=== PATIENT | female | born 1955 | race African-American/Black ===

== ENCOUNTER 2017-03-10 17:05 | Inpatient (IN) | payer OTHER ==
[2017-03-10] MEDS ORDERED: NORMAL SALINE 1000 ML 1,000 ML IV ONE (17:28)
[2017-03-10] MEDS ORDERED: CLONIDINE HCL 0.1 MG TABLET PO ONE (17:28)
[2017-03-10] MEDS ORDERED: MORPHINE SULFATE 10 MG/ML INJ IV ONE ×2 (17:29→22:26)
[2017-03-10] MEDS ORDERED: ONDANSETRON HCL INJ/PF 4 MG/2 ML SDV IV ONE (17:29)
--- NOTE | 2017-03-10 17:29 | ER Document Report ---
ED Medical Screen (RME) - General Chief Complaint: Abdominal Pain Stated Complaint: ABDOMINAL PAIN Time Seen by Provider: 03/10/17 17:24 Mode of Arrival: Ambulatory Information source: Patient Notes: 61-year-old female presents with complaints of abdominal pain nausea vomiting. Patient has symptoms started 3 hours prior to arrival, she has had a history of 2 previous hernia repairs, pt vomited her bp meds I have greeted and performed a rapid initial assessment of this patient. A comprehensive ED assessment and evaluation of the patient, analysis of test results and completion of the medical decision making process will be conducted by additional ED providers. PHYSICAL EXAMINATION: GENERAL: Well-appearing, well-nourished and in no acute distress. HEAD: Atraumatic, normocephalic. EYES: Pupils equal round extraocular movements intact, conjunctiva are normal. ENT: Nares patent NECK: Normal range of motion LUNGS: No respiratory distress Musculoskeletal: Normal range of motion NEUROLOGICAL: Normal speech, normal gait. PSYCH: Normal mood, normal affect. SKIN: Warm, Dry, normal turgor, no rashes or lesions noted. TRAVEL OUTSIDE OF THE [place] IN LAST 30 DAYS: No Past Medical History Renal/ Medical History: Denies: Hx Peritoneal Dialysis Physical Exam - Vital signs Vitals: Temp Pulse Resp BP Pulse Ox 97.9 F 65 20 212/105 H 100 03/10/17 17:20 03/10/17 17:20 03/10/17 17:20 03/10/17 17:20 03/10/17 17:20 Course - Vital Signs Vital signs: Temp Pulse Resp BP Pulse Ox 97.9 F 65 20 212/105 H 100 03/10/17 17:20 03/10/17 17:20 03/10/17 17:20 03/10/17 17:20 03/10/17 17:20
--- NOTE | 2017-03-10 18:30 | ER Document Report ---
ED GI/ - General Chief Complaint: Abdominal Pain Stated Complaint: ABDOMINAL PAIN Time Seen by Provider: 03/10/17 17:24 Mode of Arrival: Ambulatory Notes: The patient is a 61-year-old female, past medical history hypertension, 2 prior hernia repairs, presents with epigastric pain, nausea and vomiting. She says the pain feels similar to when her hernia needed repair in the past. Patient vomited her blood pressure meds earlier today. She no longer has any nausea, vomiting, pain after she received morphine and Zofran in triage. Patient had a normal bowel movement this morning and does not have any urinary symptoms. Denies hematemesis, chest pain, shortness of breath, headache, fevers, flank pain or cough. TRAVEL OUTSIDE OF THE [place] IN LAST 30 DAYS: No - Related Data Allergies/Adverse Reactions: amlodipine [From Lotrel] Allergy (Verified 03/10/17 18:51) benazepril [From Lotrel] Allergy (Verified 03/10/17 18:51) Home Medications: Current Home Medications Clonazepam [Klonopin] 1 mg PO BID 03/10/17 [History] Esomeprazole Magnesium 40 mg PO DAILY 03/10/17 [History] Fluticasone Propionate [Flonase Nasal [place] 50 Mcg/[place] 16 gm] 1 spray IH DAILY 03/10/17 [History] Hydralazine HCl 1 tab PO QID 03/10/17 [History] Hydroxyzine HCl 25 mg PO Q8HP PRN 03/10/17 [History] Meloxicam 15 mg PO DAILY 03/10/17 [History] Metoprolol Succinate [Toprol Xl] 100 mg PO DAILY 03/10/17 [History] Phentermine HCl 37.5 mg PO DAILY 03/10/17 [History] Torsemide [Demadex] 20 mg PO QAM 03/10/17 [History] Valsartan 320 mg PO DAILY 03/10/17 [History] Past Medical History - General Information source: Patient - Social History Smoking Status: Current Every Day Smoker Chew tobacco use (# tins/day): No Frequency of alcohol use: Social Drug Abuse: None Family History: Reviewed & Not Pertinent Patient has suicidal ideation: No Patient has homicidal ideation: No - Past Medical History Cardiac Medical History: Reports: Hx Hypertension Renal/ Medical History: Denies: Hx Peritoneal Dialysis Past Surgical History: Reports: Hx Abdominal Surgery - x2, Hx Hysterectomy Review of Systems - Review of Systems Notes: REVIEW OF SYSTEMS: CONSTITUTIONAL: -fevers, -chills EENT: -eye pain, -difficulty swallowing, -nasal congestion CARDIOVASCULAR:-chest pain, -syncope. RESPIRATORY: -cough, -SOB GASTROINTESTINAL: +abdominal pain, +nausea, +vomiting, -diarrhea GENITOURINARY: -dysuria, -hematuria MUSCULOSKELETAL: -back pain, -neck pain SKIN: -rash or skin lesions. HEMATOLOGIC: -easy bruising or bleeding. LYMPHATIC: -swollen, enlarged glands. NEUROLOGICAL: -altered mental status or loss of consciousness, -headache, - neurologic symptoms PSYCHIATRIC: -anxiety, -depression. ALL OTHER SYSTEMS REVIEWED AND NEGATIVE. Physical Exam - Vital signs Vitals: Temp Pulse Resp BP Pulse Ox 97.9 F 65 20 212/105 H 100 03/10/17 17:20 03/10/17 17:20 03/10/17 17:20 03/10/17 17:20 03/10/17 17:20 - Notes Notes: PHYSICAL EXAMINATION: GENERAL: Mild distress, HEAD: Atraumatic, normocephalic. EYES: Pupils equal round and reactive to light, extraocular movements intact, sclera anicteric, conjunctiva are normal. ENT: nares patent, oropharynx clear without exudates. Moist mucous membranes. NECK: Normal range of motion, supple without lymphadenopathy LUNGS: Breath sounds clear to auscultation bilaterally and equal. No wheezes rales or rhonchi. HEART: Regular rate and rhythm without murmurs ABDOMEN: Soft, moderate epigastric tenderness, normoactive bowel sounds. No guarding, no rebound. No masses appreciated. EXTREMITIES: Normal range of motion, no pitting or edema. No cyanosis. NEUROLOGICAL: Cranial nerves grossly intact. Normal speech, normal gait. Normal sensory and motor exams. PSYCH: Normal mood, normal affect. SKIN: Warm, Dry, normal turgor, no rashes or lesions noted. Course - Re-evaluation Re-evalutation: Pt with evidence of pancreatitis on CAT scan and with elevated lipase. No gallstones. Triglyceride levels are normal. She says that she drinks 2-3 glasses of wine a night, but has been drinking more since she is on vacation visiting her son. Patient provided with her home blood pressure medications with improvement of her blood pressure. Patient requires admission due to nausea, vomiting and pain control. Primary care physician is in [facility]. 03/10/17 22:[address] Cortze and will admit patient as Inpatient to Medical Floor. - Vital Signs Vital signs: Temp Pulse Resp BP Pulse Ox 97.9 F 65 18 142/91 H 96 03/10/17 17:20 03/10/17 17:20 03/10/17 21:01 03/10/17 21:01 03/10/17 21:01 - Laboratory Result Diagrams: 03/10/17 18:09 03/10/17 19:10 Laboratory results interpreted by me: 03/10/17 03/10/17 03/10/17 18:09 18:41 19:10 MCHC 31.9 L RDW 14.7 H Seg Neutrophils % 79.7 H Lymphocytes % 12.9 L Est GFR (Non-Af Amer) 55 L Lipase 3075.6 H Urine Ketones TRACE H Urine Blood SMALL H Urine Nitrite POSITIVE H Ur Leukocyte Esterase SMALL H - Diagnostic Test Radiology reviewed: Image reviewed, Reports reviewed Radiology results interpreted by me: CT A/P: There is mild diffuse enlargement of the pancreas with peripancreatic fluid and fat stranding questionable for underlying pancreatitis. There is a small amount of fluid seen within the pelvis and throughout the abdomen likely related to inflammation related the pancreas. No other acute abnormality identified within the abdomen. Small fat containing umbilical hernia noted RUQ US: Intra- abdominal ascites as seen on the CT. No other significant abnormality identified on the right upper quadrant ultrasound. - EKG Interpretation by Me EKG shows normal: Sinus rhythm, [place], Intervals, QRS Complexes, ST-T Waves Rate: Normal Discharge - Discharge Clinical Impression: Pancreatitis Qualifiers: Chronicity: acute Pancreatitis type: alcohol induced Acute pancreatitis complication: no infection or necrosis Qualified Code(s): K85.20 - Alcohol induced acute pancreatitis without necrosis or infection Condition: Stable Disposition: ADMITTED INPATIENT Admitting Provider: Jacklyn Cortez Unit Admitted: Medical Floor
[2017-03-10 18:36] LABS: ABSOLUTE BASOPHILS # (AUTO) 0.1 10^3/uL (0.0-0.2); ABSOLUTE LYMPHOCYTES (AUTO) 1.1 10^3/uL (0.5-4.7); ABSOLUTE MONOCYTES (AUTO) 0.5 10^3/uL (0.1-1.4); ABSOLUTE NEUT (AUTO) 6.7 10^3/uL (1.7-8.2); BASOPHILS % (AUTO) 0.7 % (0-2); EOSINOPHILS % (AUTO) 0.4 % (0-6); HEMATOCRIT 37.6 % (36.0-47.0); HGB HCT DIFFERENCE -1.6; LYMPHOCYTES % (AUTO) 12.9 % (13-45); MEAN CORPUSCULAR HEMOGLOBIN 30.2 pg (27.0-33.4); MEAN CORPUSCULAR HGB CONC 31.9 g/dL (32.0-36.0); MEAN CORPUSCULAR VOLUME 95 fl (80-97); MONOCYTES % (AUTO) 6.3 % (3-13); RED BLOOD COUNT 3.98 10^6/uL (3.72-5.28); RED CELL DISTRIBUTION WIDTH 14.7 % (11.5-14.0); SEGMENTED NEUTROPHILS % (AUTO) 79.7 % (42-78); WHITE BLOOD COUNT 8.4 10^3/uL (4.0-10.5)
[2017-03-10 19:01] LABS: APPEARANCE,URINE CLEAR; BILIRUBIN,URINE NEGATIVE (NEGATIVE); GLUCOSE, URINE NEGATIVE (NEGATIVE); KETONES,URINE TRACE mg/dL (NEGATIVE); LEUKOCYTE ESTERASE,URINE SMALL (NEGATIVE); NITRITE,URINE POSITIVE (NEGATIVE); PROTEIN,URINE NEGATIVE (NEGATIVE); URINE SPECIFIC GRAVITY 1.009; UROBILINOGEN,URINE NEGATIVE mg/dL (<2.0)
[2017-03-10 19:36] LABS: ALANINE AMINOTRANSFERASE 31 U/L (9-52); ALBUMIN 4.5 g/dL (3.5-5.0); ALKALINE PHOSPHATASE 80 U/L (38-126); ANION GAP 13 (5-19); ASPARTATE AMINO TRANSFERASE 28 U/L (14-36); BILIRUBIN,DIRECT 0.4 mg/dL (0.0-0.4); BILIRUBIN,TOTAL 0.9 mg/dL (0.2-1.3); BLOOD UREA NITROGEN 19 mg/dL (7-20); CALCIUM 9.4 mg/dL (8.4-10.2); CARBON DIOXIDE 24 mmol/L (22-30); CHLORIDE 105 mmol/L (98-107); CREATININE RESULT 1.02 mg/dL (0.52-1.25); GLUCOSE 90 mg/dL (75-110); POTASSIUM 3.7 mmol/L (3.6-5.0); SODIUM 142.2 mmol/L (137-145); TOTAL PROTEIN 7.7 g/dL (6.3-8.2)
[2017-03-10 19:46] LABS: LIPASE 3075.6 U/L (23-300)
[2017-03-10] MEDS ORDERED: LABETALOL HCL INJ 20 MG/4 ML DISP.SYRIN IV ONE (20:35)
[2017-03-10 21:28] LABS: ADD ON TESTING BLD IN LAB ACKNOWLEDGE
[2017-03-10 21:36] LABS: TRIGLYCERIDES 125 mg/dL (<150)
--- NOTE | 2017-03-10 21:36 | RADIOLOGY REPORT (SQ) ---
EXAM DESCRIPTION: CT ABD/PELVIS WITH IV ORAL COMPLETED DATE/TIME: 03/10/2017 8:46 pm REASON FOR STUDY: ab pain, hx of 2 previous hernia repair COMPARISON: None. TECHNIQUE: CT scan of the abdomen and pelvis performed using helical scanning technique with dynamic intravenous contrast injection. No oral contrast. Images reviewed with lung, soft tissue, and bone windows. Reconstructed coronal and sagittal MPR images reviewed. Delayed images for evaluation of the urinary system also acquired. All images stored on PACS. All CT scanners at this facility use dose modulation, iterative reconstruction, and/or weight based d osing when appropriate to reduce radiation dose to as low as reasonably achievable (ALARA). [facility]: Dose Right [facility]: CareDose [facility]: Dose Right [facility]: Teradose 4D [facility]: HelpMeNow CONTRAST TYPE AND DOSE: contrast/concentration: Isovue 370.00 mg/ml; Total Contrast Delivered: 81.0 ml; Total Saline Delivered: 43.0 ml RENAL FUNCTION: BUN 19 creatinine 1.02 RADIATION DOSE: Up-to-date CT equipment and radiation dose reduction techniques were employed. CTDIv ol: 9.5 - 13.5 mGy. DLP: 1197 mGy-cm.. LIMITATIONS: None. FINDINGS: LOWER CHEST: No significant findings. No nodules or infiltrates. LIVER: Small amount of perihepatic ascites seen anteriorly. No focal liver lesions. The portal and hepatic veins are patent. SPLEEN: Normal size. No focal lesions. PANCREAS: Scattered diffuse enlargement of the pancreas. There is no hypoattenuating lesion seen thr oughout. There is peripancreatic fluid and fat stranding. Findings suggest acute pancreatitis. The re is small amount of fluid seen within the abdomen which likely or is related to the inflammation. There is also fluid noted in the dependent portion of the pelvis which is also likely related to infl ammation. Question possible pancreatitis. No calcifications. GALLBLADDER: No identified stones by CT criteria. No inflammatory changes to suggest cholecystitis. ADRENAL GLANDS: No significant masses or asymmetry. RIGHT KIDNEY AND URETER: No solid masses. No significant calcifications. No hydronephrosis or hyd roureter. LEFT KIDNEY AND URETER: No solid masses. No significant calcifications. No hydronephrosis or hydr oureter. AORTA AND VESSELS: No aneurysm. No dissection. Renal arteries, SMA, celiac without stenosis. RETROPERITONEUM: No retroperitoneal adenopathy, hemorrhage or masses. BOWEL AND PERITONEAL CAVITY: No masses or inflammatory changes. No free fluid or peritoneal masses. APPENDIX: Normal. PELVIS: Fluid noted in the pelvis. No mass lesions. No significant adenopathy. Urinary bladder unr emarkable by CT. ABDOMINAL WALL: Small fat containing umbilical hernia. No mass lesions. BONES: No significant or acute findings. OTHER: No other significant finding. IMPRESSION: There is mild diffuse enlargement of the pancreas with peripancreatic fluid and fat stra nding questionable for underlying pancreatitis. There is a small amount of fluid seen within the pel vis and throughout the abdomen likely related to inflammation related the pancreas. No other acute a bnormality identified within the abdomen. Small fat containing umbilical hernia noted. TECHNICAL DOCUMENTATION: JOB ID: [id number] Quality ID # [id number]: Final reports with documentation of one or more dose reduction techniques (e.g., Au tomated exposure control, adjustment of the mA and/or kV according to patient size, use of iterative reconstruction technique) 2010 [employer]- All Rights Reserved
--- NOTE | 2017-03-10 21:58 | RADIOLOGY REPORT (SQ) ---
EXAM DESCRIPTION: U/S ABDOMEN LIMITED W/O DOP COMPLETED DATE/TIME: 03/10/2017 9:43 pm REASON FOR STUDY: RUQ pain, pancreatitis COMPARISON: None. TECHNIQUE: Dynamic and static grayscale images acquired of the abdomen and recorded on PACS. Additio nal selected color Doppler and spectral images recorded. LIMITATIONS: None. FINDINGS: PANCREAS: No masses. Visualized pancreatic duct normal caliber. Tail not visualized due to overlying bowel gas. LIVER: No masses. Echotexture normal. LIVER VASCULATURE: Normal directional flow of the main portal vein and hepatic veins. GALLBLADDER: No stones. Normal wall thickness. No pericholecystic fluid. ULTRASOUND-DETECTED GALVAN'S SIGN: Negative. INTRAHEPATIC DUCTS AND COMMON DUCT: CBD and intrahepatic ducts normal caliber. No filling defects. INFERIOR VENA CAVA: Normal flow. AORTA: No aneurysm. RIGHT KIDNEY: Normal size. Normal echogenicity. No solid or suspicious masses. No hydronephrosis. No calcifications. PERITONEAL AND RIGHT PLEURAL SPACE: Ascites as seen on the CT. OTHER: No other significant findings. IMPRESSION: Intra- abdominal ascites as seen on the CT. No other significant abnormality identified on the right upper quadrant ultrasound. TECHNICAL DOCUMENTATION: JOB ID: [id number] [place]- All Rights Reserved
[2017-03-10] MEDS ORDERED: THIAMINE HCL 100 MG, FOLIC ACID 1 MG in NORMAL SALINE 50 ML IV ONE (22:47)
[2017-03-10] MEDS ORDERED: IPRATROPIUM/ALBUTEROL 0.5-2.5 MG/3 ML AMPUL NEB PRN (22:47)
[2017-03-10] MEDS ORDERED: LORAZEPAM INJ 2 MG/1 ML VIAL IV PRN (22:47)
[2017-03-11] MEDS ORDERED: FOLIC ACID INJ 5 MG/1 ML 10 ML VIAL ONE
[2017-03-11] MEDS ORDERED: THIAMINE HCL INJ 200 MG/2 ML VIAL ONE
[2017-03-11] MEDS: NORMAL SALINE 1000 ML 1,000 ML IV SCH ×3 (01:51→08:56)
--- NOTE | 2017-03-11 04:24 | PDOC H&P ---
History of Present Illness Admission Date/PCP: 03/10/17 22:47 Patient complains of: Abdominal pain and nausea History of Present Illness: RAMIREZ GODOY is a 61 year old female with a past medical history of hypertension, tobacco dependence COPD, anxiety and alcohol dependence in her usual state of health until approximately 48 hours prior to presentation developing abdominal pain associated with nausea and loose stools without vomiting. Patient admits to alcohol indiscretion over the last few days while visiting family in [place]. She denies any recent change in medications. In the emergency room she is found to have an elevated lipase of [address] positive for pancreatic inflammation without necrosis or abscess. She started on IV fluids and symptomatic management referred to the hospitalist for admission. She denies previous episode Past Medical History Cardiac Medical History: Reports: Hypertension Pulmonary Medical History: Reports: Chronic Obstructive Pulmonary Disease (COPD) Psychiatric Medical History: Reports: Alcohol Dependency, General Anxiety Disorder, Tobacco Dependency Past Surgical History Past Surgical History: Reports: Hysterectomy Social History Information Source: Patient Smoking Status: Current Every Day Smoker Cigarettes Packs Per Day: 1.5 Frequency of Alcohol Use: Social Hx Recreational Drug Use: No Drugs: None Hx Prescription Drug Abuse: No - Advance Directive Resuscitation Status: Full Code Family History Family History: DM, Hypertension Parental Family History Reviewed: Yes Children Family History Reviewed: Yes Sibling(s) Family History Reviewed.: Yes Medication/Allergy Home Medications: Clonazepam [Klonopin] 1 mg PO BID 03/10/17 Esomeprazole Magnesium 40 mg PO DAILY 03/10/17 Fluticasone Propionate [Flonase Nasal [place] 50 Mcg/[place] 16 gm] 1 spray IH DAILY 03/10/17 Hydralazine HCl 1 tab PO QID 03/10/17 Hydroxyzine HCl 25 mg PO Q8HP PRN 03/10/17 Meloxicam 15 mg PO DAILY 03/10/17 Metoprolol Succinate [Toprol Xl] 100 mg PO DAILY 03/10/17 Phentermine HCl 37.5 mg PO DAILY 03/10/17 Torsemide [Demadex] 20 mg PO QAM 03/10/17 Valsartan 320 mg PO DAILY 03/10/17 Allergies/Adverse Reactions: amlodipine [From Lotrel] Allergy (Verified 03/10/17 18:51) benazepril [From Lotrel] Allergy (Verified 03/10/17 18:51) Review of Systems Constitutional: ABSENT: chills, fever(s), headache(s), weight gain, weight loss Eyes: ABSENT: visual disturbances Ears: ABSENT: hearing changes Cardiovascular: ABSENT: chest pain, dyspnea on exertion, edema, orthropnea, palpitations Respiratory: ABSENT: cough, hemoptysis Gastrointestinal: ABSENT: abdominal pain, constipation, diarrhea, hematemesis, hematochezia, nausea, vomiting Genitourinary: ABSENT: dysuria, hematuria Musculoskeletal: ABSENT: joint swelling Integumentary: ABSENT: rash, wounds Neurological: ABSENT: abnormal gait, abnormal speech, confusion, dizziness, focal weakness, syncope Psychiatric: ABSENT: anxiety, depression, homidical ideation, suicidal ideation Endocrine: ABSENT: cold intolerance, heat intolerance, polydipsia, polyuria Hematologic/Lymphatic: ABSENT: easy bleeding, easy bruising Physical Exam Vital Signs: Temp Pulse Resp BP Pulse Ox 98.1 F 76 20 164/93 H 99 03/11/17 00:50 03/11/17 00:50 03/11/17 00:50 03/11/17 00:50 03/11/17 00:50 Intake & Output 03/09/17 03/10/17 03/11/17 11:59 11:59 11:59 Weight 79.6 kg General appearance: PRESENT: mild distress Head exam: PRESENT: atraumatic, normocephalic Eye exam: PRESENT: conjunctiva pink, EOMI, PERRLA. ABSENT: scleral icterus Ear exam: PRESENT: normal external ear exam Mouth exam: PRESENT: moist, tongue midline Neck exam: ABSENT: carotid bruit, JVD, lymphadenopathy, thyromegaly Respiratory exam: PRESENT: clear to auscultation [place]. ABSENT: rales, rhonchi, wheezes Cardiovascular exam: PRESENT: RRR. ABSENT: diastolic murmur, rubs, systolic murmur Pulses: PRESENT: normal dorsalis pedis pul Vascular exam: PRESENT: normal capillary refill GI/Abdominal exam: PRESENT: distended, hyperactive bowel sounds, normal bowel sounds, soft, tenderness - Epigastric tenderness without guarding. ABSENT: firm , guarding, hernia, mass, organolmegaly, rebound Rectal exam: PRESENT: deferred Extremities exam: PRESENT: full ROM. ABSENT: calf tenderness, clubbing, pedal edema Neurological exam: PRESENT: alert, awake, oriented to person, oriented to place , oriented to time, oriented to situation, CN II-XII grossly intact. ABSENT: motor sensory deficit Psychiatric exam: PRESENT: appropriate affect, normal mood. ABSENT: homicidal ideation, suicidal ideation Skin exam: PRESENT: dry, intact, warm. ABSENT: cyanosis, rash Results Impressions: Abdomen/Pelvis CT 03/10/17 17:28 IMPRESSION: There is mild diffuse enlargement of the pancreas with peripancreatic fluid and fat stranding questionable for underlying pancreatitis. There is a small amount of fluid seen within the pelvis and throughout the abdomen likely related to inflammation related the pancreas. No other acute abnormality identified within the abdomen. Small fat containing umbilical hernia noted. Abdomen Ultrasound 03/10/17 20:34 IMPRESSION: Intra- abdominal ascites as seen on the CT. No other significant abnormality identified on the right upper quadrant ultrasound. Assessment & Plan - Diagnosis (1) Alcoholic pancreatitis Qualifiers: Chronicity: acute Is this a current diagnosis for this admission?: YesPlan: Admission to the medical floor, bowel rest, IV fluids and symptomatic management advance diet as tolerated (2) Abdominal pain Is this a current diagnosis for this admission?: YesPlan: Secondary pancreatitis avoidance of alcohol, bowel rest and symptomatic management (3) Alcohol dependence Is this a current diagnosis for this admission?: YesPlan: Consider Ativan as needed and referral to outpatient rehab (4) Tobacco dependence Is this a current diagnosis for this admission?: YesPlan: Tobacco Dependence patient received tobacco cessation counseling and offered nicotine replacement options - Time Time Spent: 30 to 50 Minutes - Inpatient Certification Medical Necessity: Need Close Monitoring Due to Risk of Patient Decompensation
[2017-03-11 04:55] LABS: ABSOLUTE EOSINOPHILS # (AUTO) 0.1 10^3/uL (0.0-0.6); ABSOLUTE LYMPHOCYTES (AUTO) 1.2 10^3/uL (0.5-4.7); ABSOLUTE MONOCYTES (AUTO) 0.5 10^3/uL (0.1-1.4); ABSOLUTE NEUT (AUTO) 5.3 10^3/uL (1.7-8.2); BASOPHILS % (AUTO) 0.3 % (0-2); EOSINOPHILS % (AUTO) 0.8 % (0-6); HEMATOCRIT 31.7 % (36.0-47.0); HEMOGLOBIN 10.6 g/dL (12.0-15.5); HGB HCT DIFFERENCE 0.1; LYMPHOCYTES % (AUTO) 16.8 % (13-45); MEAN CORPUSCULAR HEMOGLOBIN 30.7 pg (27.0-33.4); MEAN CORPUSCULAR HGB CONC 33.3 g/dL (32.0-36.0); MEAN CORPUSCULAR VOLUME 92 fl (80-97); MONOCYTES % (AUTO) 7.1 % (3-13); RED BLOOD COUNT 3.44 10^6/uL (3.72-5.28); RED CELL DISTRIBUTION WIDTH 14.7 % (11.5-14.0); WHITE BLOOD COUNT 7.1 10^3/uL (4.0-10.5)
[2017-03-11] MEDS: HEPARIN SOD (PORCINE) 5,000 UNIT/ML 1 ML SYRINGE SUBCUT SCH ×3 (05:05→21:56)
[2017-03-11 05:11] LABS: ALANINE AMINOTRANSFERASE 44 U/L (9-52); ALBUMIN 3.3 g/dL (3.5-5.0); ALKALINE PHOSPHATASE 97 U/L (38-126); ANION GAP 9 (5-19); ASPARTATE AMINO TRANSFERASE 136 U/L (14-36); BILIRUBIN,DIRECT 0.3 mg/dL (0.0-0.4); BLOOD UREA NITROGEN 14 mg/dL (7-20); CALCIUM 8.2 mg/dL (8.4-10.2); CARBON DIOXIDE 23 mmol/L (22-30); CHLORIDE 107 mmol/L (98-107); CREATININE RESULT 0.86 mg/dL (0.52-1.25); GLUCOSE 84 mg/dL (75-110); POTASSIUM 3.5 mmol/L (3.6-5.0); SODIUM 138.5 mmol/L (137-145); TOTAL PROTEIN 5.8 g/dL (6.3-8.2)
--- NOTE | 2017-03-11 07:50 | EKG REPORT ---
SEVERITY:- NORMAL ECG - SINUS RHYTHM : Confirmed by: Tim Alfonso MD 11-Mar-2017 07:49:21
[2017-03-11] MEDS ORDERED: ONDANSETRON HCL INJ/PF 4 MG/2 ML SDV IV PRN (08:51)
[2017-03-11] MEDS ORDERED: POTASSI CL 20 MEQ/50 ML RIDER 50 ML IV ONE (08:59)
[2017-03-11] MEDS ORDERED: (PENDING PHARMACY ID) (Hydroxyzine Hcl [Hydroxyzine Hcl] 25 MG) PO PRN (09:00)
--- NOTE | 2017-03-11 09:19 | PROGRESS NOTE E ---
Progress Note NAME: RAMIREZ GODOY : 1955 AGE: 61Y DATE: 03/11/2017 ROOM: 404 SUBJECTIVE: The patient is sitting up on the side of the bed. She states that she does feel better than when she came in but does admit to some lower abdominal pain which radiates to her back area. The patient denies any nausea or vomiting. No diarrhea, shortness of breath, dizziness, chest pain. No fevers or chills. The patient has been afebrile. Her blood pressures are elevated but overall improved. The patient does not voice any other concerns at this time. REVIEW OF SYSTEMS: The rest of the review of systems is negative. MEDICATIONS: Medications have been reviewed. OBJECTIVE: GENERAL: The patient is a 61-year-old -[place] female who is awake, alert, and oriented to person, place, time, and situation. She is verbal, conversational, ambulatory, does not appear to be in any acute distress. VITAL SIGNS: As follows: Temperature is 98.2, pulse 61, respirations 18, blood pressure is 147/77, oxygen saturation is 97% on room air. SKIN: Warm and dry. No rash. She is not diaphoretic. HEENT: Pupils are equal, round, reactive to light and accommodation. Conjunctivae pink. No JVP. CARDIOVASCULAR: Heart is regular with no murmur or rub. CHEST: Clear, symmetrical, unlabored. ABDOMEN: Diffusely tender. There is no area of focal tenderness. Bowel sounds are present, but the patient is not rigid or guarding. BACK: No CVA tenderness or sacral edema. EXTREMITIES: No clubbing, cyanosis, edema. PSYCHIATRIC: Appropriate affect. Pleasant mood. DIAGNOSTICS: Lab values are as follows. Hematology obtained on 03/11/2017: WBCs are 7.1, hemoglobin 10.6, hematocrit is 31.7, platelet count is 175,000. Chemistry obtained on 03/11/2017: Sodium is 138, potassium 3.5, chloride 107, carbon dioxide 23, BUN 14, creatinine 0.86, glucose 84, calcium is 8.2, bilirubin is 1, AST 136, ALT is 44, alk phos 97, total protein 5.8, albumin 3.3. IMPRESSION AND PLAN: 1. ACUTE ALCOHOLIC PANCREATITIS. Will repeat lipase in the a.m. If it is greater than 50% decreased, given the patient's significant improvement in symptoms, will start fat-free clear liquids. Otherwise, will defer this to the a.m. Will repeat lipase in the a.m. as well. It appears the patient is prescribed diuretics; however, according to her she has not taken them over a week as she only takes them as needed and does not like to take them when she travels. Therefore, I do not feel that there is a component of diuretic input. However, will continue to monitor this. 2. ALCOHOL DEPENDENCY. Will continue p.r.n. benzodiazepines. The patient denies any history of DTs. 3. TOBACCO DEPENDENCY, CONTINUOUS. Spent 3 minutes discussing smoking cessation and education. The patient declines any pharmacological intervention at this time. However, will add a p.r.n. nicotine patch. 4. HYPERTENSION. The patient's blood pressures have improved. Will continue her home medications. 5. DVT PROPHYLAXIS. Will continue subcutaneous heparin. DISPOSITION: THE PATIENT IS A FULL CODE. Pending the patient's symptomatology and diagnostic findings, will re-evaluate in the a.m. Time spent on this followup, including assessment/plan, physical examination, patient education, and family meeting, is 25 minutes. DICTATING PHYSICIAN: MARIE TATUM NP [id number] PHY#: [id number] ID: [id number] JOB#: [id number] ACCT: [id number] cc: >
[2017-03-11] MEDS ORDERED: HYDROXYZINE HCL 10 MG TABLET PO PRN (09:28)
[2017-03-11] MEDS: LANSOPRAZOLE 30 MG TAB.RAP.DR PO SCH (10:22)
[2017-03-11] MEDS: HYDRALAZINE HCL 25 MG TABLET PO SCH ×4 (10:22→21:55)
[2017-03-11] MEDS: METOPROLOL SUCCINATE 50 MG TAB.SR.24H PO SCH (10:23)
[2017-03-11] MEDS: CLONAZEPAM 1 MG TABLET PO SCH ×2 (10:23→18:51)
[2017-03-11] MEDS: ACETAMINOPHEN 325 MG TABLET PO PRN (10:30)
[2017-03-11] MEDS: POTASSI CL 20 MEQ/1/2NS 1L 1,000 ML IV PRN (15:01)
[2017-03-11] MEDS: KETOROLAC TROMETHAMINE INJ/PF 30 MG/1 ML SDV IV PRN (16:39)
[2017-03-12] MEDS: KETOROLAC TROMETHAMINE INJ/PF 30 MG/1 ML SDV IV PRN (02:05)
[2017-03-12] MEDS: POTASSI CL 20 MEQ/1/2NS 1L 1,000 ML IV PRN (02:08)
[2017-03-12 05:15] LABS: HEMATOCRIT 28.8 % (36.0-47.0); HEMOGLOBIN 9.4 g/dL (12.0-15.5); HGB HCT DIFFERENCE -0.6; MEAN CORPUSCULAR HEMOGLOBIN 30.9 pg (27.0-33.4); MEAN CORPUSCULAR HGB CONC 32.4 g/dL (32.0-36.0); MEAN CORPUSCULAR VOLUME 95 fl (80-97); RED BLOOD COUNT 3.03 10^6/uL (3.72-5.28); RED CELL DISTRIBUTION WIDTH 14.8 % (11.5-14.0); WHITE BLOOD COUNT 6.2 10^3/uL (4.0-10.5)
[2017-03-12] MEDS: HEPARIN SOD (PORCINE) 5,000 UNIT/ML 1 ML SYRINGE SUBCUT SCH (05:26)
[2017-03-12 05:58] LABS: ANION GAP 9 (5-19); BLOOD UREA NITROGEN 10 mg/dL (7-20); CARBON DIOXIDE 18 mmol/L (22-30); CHLORIDE 110 mmol/L (98-107); CREATININE RESULT 0.95 mg/dL (0.52-1.25); GLUCOSE 47 mg/dL (75-110); LIPASE 1330.2 U/L (23-300); MAGNESIUM 1.6 mg/dL (1.6-2.3); POTASSIUM 3.8 mmol/L (3.6-5.0)
[2017-03-12] MEDS ORDERED: ONDANSETRON 4 MG TAB.RAPDIS PO PRN (08:21)
--- NOTE | 2017-03-12 08:44 | PROGRESS NOTE E ---
Progress Note NAME: RAMIREZ GODOY : 1955 AGE: 61Y DATE: 03/12/2017 ROOM: 404 SUBJECTIVE: The patient is out of bed washing up when I entered the room. She states that she feels better. Her pain in her abdomen is much improved. The patient denies any episodes of nausea, vomiting, diarrhea. No shortness of breath, dizziness, chest pain. No fevers, chills. The patient has been afebrile. Her blood pressures have been slightly afebrile but in a good range, and the patient does not voice any other concerns at this time. REVIEW OF SYSTEMS: The rest of the review of systems is negative. MEDICATIONS: Medications have been reviewed. OBJECTIVE: GENERAL: The patient is a 61-year-old -[place] female who is awake, alert, and oriented to person, place, time, and situation. She is verbal, conversational, ambulatory, does not appear to be in any acute distress. VITAL SIGNS: As follows: Temperature is 98.4, pulse 64, respirations 16, blood pressure 164/74, oxygen saturation 96% on room air. SKIN: Warm and dry. No rash. She is not diaphoretic. HEENT: Pupils equal, round, reactive to light and accommodation. Conjunctivae pink. There is no JVP. CARDIOVASCULAR: Heart is regular. There is no murmur or rub. CHEST: Clear, symmetrical, unlabored. ABDOMEN: Soft, nontender, nondistended. Bowel sounds are present. No palpable organomegaly. BACK: No CVA tenderness or sacral edema. EXTREMITIES: No clubbing, cyanosis, edema. PSYCHIATRIC: Appropriate affect, pleasant mood. DIAGNOSTICS: Lab values are as follows. Hematology obtained on 03/12/2017: WBCs are 6.2, hemoglobin is 9.4, hematocrit is 28.8, platelet count is 147,000. Chemistry obtained on 03/12/2017: Sodium is 137, potassium 3.8, chloride 110, carbon dioxide 18, BUN 10, creatinine 0.95, glucose 84, calcium is 8, magnesium is 1.6, lipase is 1330. IMPRESSION AND PLAN: 1. ACUTE ALCOHOLIC PANCREATITIS. Will repeat lipase in the a.m. The patient's lipase is 50% of what it was the day before and she is now asymptomatic; therefore, will start fat-free clear liquids. Will repeat lipase in the a.m. to ensure that it does not bump up and will follow. 2. ALCOHOL DEPENDENCY. Continue p.r.n. benzodiazepines. Patient has no evidence of acute withdrawal. 3. TOBACCO DEPENDENCY, CONTINUOUS. Will continue p.r.n. nicotine patch. 4. HYPERTENSION. Blood pressure is overall improved, a little on the high side, but will continue current medications. 5. DVT PROPHYLAXIS. Will continue subcutaneous heparin. DISPOSITION: THE PATIENT IS A FULL CODE. Pending the patient's symptomatology and diagnostic findings, will re-evaluate in the a.m. for discharge. Time spent on this followup, including assessment/plan, physical examination, patient education, is 25 minutes. DICTATING PHYSICIAN: MARIE TATUM NP [id number] PHY#: [id number] ID: [id number] JOB#: [id number] ACCT: [id number] cc: >
[2017-03-12] MEDS: CLONAZEPAM 1 MG TABLET PO SCH ×2 (10:46→17:31)
[2017-03-12] MEDS: LANSOPRAZOLE 30 MG TAB.RAP.DR PO SCH (10:46)
[2017-03-12] MEDS: HYDRALAZINE HCL 25 MG TABLET PO SCH ×4 (10:46→22:08)
[2017-03-12] MEDS: METOPROLOL SUCCINATE 50 MG TAB.SR.24H PO SCH (10:47)
[2017-03-12] MEDS: TRAMADOL HCL 50 MG TABLET PO PRN (19:34)
[2017-03-13] MEDS: TRAMADOL HCL 50 MG TABLET PO PRN (04:29)
[2017-03-13 05:23] LABS: ALANINE AMINOTRANSFERASE 30 U/L (9-52); ALBUMIN 2.9 g/dL (3.5-5.0); ALKALINE PHOSPHATASE 75 U/L (38-126); ANION GAP 8 (5-19); ASPARTATE AMINO TRANSFERASE 23 U/L (14-36); BILIRUBIN,DIRECT 0.3 mg/dL (0.0-0.4); BILIRUBIN,TOTAL 0.5 mg/dL (0.2-1.3); BLOOD UREA NITROGEN 8 mg/dL (7-20); CALCIUM 8.3 mg/dL (8.4-10.2); CARBON DIOXIDE 21 mmol/L (22-30); CHLORIDE 108 mmol/L (98-107); CREATININE RESULT 0.86 mg/dL (0.52-1.25); GLUCOSE 91 mg/dL (75-110); LIPASE 1989.2 U/L (23-300); MAGNESIUM 1.6 mg/dL (1.6-2.3); POTASSIUM 3.6 mmol/L (3.6-5.0); SODIUM 137.2 mmol/L (137-145); TOTAL PROTEIN 5.6 g/dL (6.3-8.2)
[2017-03-13] MEDS ORDERED: HYDROXYZINE PAMOATE 25 MG CAPSULE PO PRN (08:41)
[2017-03-13] MEDS ORDERED: ONDANSETRON 4 MG TAB.RAPDIS PO PRN (08:43)
[2017-03-13] MEDS ORDERED: HYDRALAZINE HCL 50 MG TABLET PO ONE (08:45)
--- NOTE | 2017-03-13 09:10 | PROGRESS NOTE E ---
Progress Note NAME: RAMIREZ GODOY : 1955 AGE: 61Y DATE: 03/13/2017 ROOM: 404 SUBJECTIVE: The patient is currently lying in bed. She states that she did not have a good night last night, that she was unable to sleep. The patient denies any nausea, vomiting, diarrhea. No shortness of breath, dizziness, chest pain. No fevers, chills, but the patient does admit to abdominal pain and belching, and the patient does not voice any other concerns at this time. REVIEW OF SYSTEMS: Rest of review of systems is negative. MEDICATIONS: Medications have been reviewed. OBJECTIVE: GENERAL: The patient is a 61-year-old -[place]er female who is awake, alert, and oriented to person, place, time, and situation. She is verbal, conversational, ambulatory, does not appear to be in acute distress. VITAL SIGNS: Temperature is 98.4, pulse 54, respirations 18, blood pressure is 178/97, oxygen saturation 97% on room air. SKIN: Warm and dry. No rash. She is not diaphoretic. HEENT: Pupils equal, round, and reactive to light and accommodation. Conjunctiva pink. No JVP. CARDIOVASCULAR SYSTEM: Heart is regular. There is no murmur or rub. CHEST: Clear, symmetrical, unlabored. ABDOMEN: Diffusely tender. Mildly distended. Bowel sounds are present. BACK: No CVA tenderness or sacral edema. EXTREMITIES: No clubbing, cyanosis, or edema. PSYCHIATRIC: Appropriate affect, pleasant mood. DIAGNOSTICS: Lab values are as follows: Hematology obtained on 03/12/2017: WBCs are 6.2, hemoglobin is 9.4, hematocrit is 28.8, platelet count is 147,000. Chemistry obtained on 03/13/2017: Sodium is 137, potassium 3.6, chloride is 108, carbon dioxide 21, BUN is 8, creatinine is 0.86, glucose 91, calcium is 8.3, magnesium is 1.6, bilirubin 0.5. AST 23, ALT is 30, Alk phos 75, total protein 5.6, albumin 2.9, lipase is 1989. IMPRESSION AND PLAN: 1. ACUTE ALCOHOLIC PANCREATITIS. Will repeat lipase in the a.m. It did bump up a little after the patient did receive some clear liquids. Will repeat lipase in the a.m. Will resume hydration, pain management, and continue gut rest. 2. ALCOHOL DEPENDENCY. Will continue the patient's scheduled Klonopin for now and monitor for evidence of withdrawal. 3. HYPERTENSION. Blood pressures are elevated. May be a pain response, but will increase hydralazine and follow. 4. ALCOHOL DEPENDENCY, CONTINUOUS. Will continue p.r.n. nicotine patch. DISPOSITION: The patient is a FULL CODE. Pending patient's symptomatology and diagnostic findings. Will re-evaluate in the a.m. for possible discharge. Time spent on this followup including assessment, plan, physical examination, patient education is 20 minutes. DICTATING PHYSICIAN: MARIE TATUM NP [id number] PHY#: [id number] ID: [id number] JOB#: [id number] ACCT: [id number] cc: >
[2017-03-13] MEDS: LANSOPRAZOLE 30 MG TAB.RAP.DR PO SCH ×2 (11:27→15:57)
[2017-03-13] MEDS: CLONAZEPAM 1 MG TABLET PO SCH ×2 (11:28→18:04)
[2017-03-13] MEDS: POTASSI CL 20 MEQ/D5-1/2NS 1L 1,000 ML IV PRN ×2 (11:34→23:53)
[2017-03-13] MEDS: METOPROLOL SUCCINATE 50 MG TAB.SR.24H PO SCH (11:34)
[2017-03-13] MEDS: HYDRALAZINE HCL 50 MG TABLET PO SCH ×2 (15:57→21:52)
[2017-03-13] MEDS: ACETAMINOPHEN 325 MG TABLET PO PRN ×2 (18:04→23:53)
[2017-03-14] MEDS: HYDROCODONE/ACETAMINOPHEN 7.5-325 MG TABLET PO PRN ×2 (03:22→22:22)
[2017-03-14 05:29] LABS: ALANINE AMINOTRANSFERASE 26 U/L (9-52); ALBUMIN 2.9 g/dL (3.5-5.0); ALKALINE PHOSPHATASE 65 U/L (38-126); ANION GAP 8 (5-19); ASPARTATE AMINO TRANSFERASE 19 U/L (14-36); BILIRUBIN,DIRECT 0.3 mg/dL (0.0-0.4); BILIRUBIN,TOTAL 0.5 mg/dL (0.2-1.3); BLOOD UREA NITROGEN 3 mg/dL (7-20); CALCIUM 8.5 mg/dL (8.4-10.2); CARBON DIOXIDE 24 mmol/L (22-30); CHLORIDE 105 mmol/L (98-107); CREATININE RESULT 0.75 mg/dL (0.52-1.25); GLUCOSE 119 mg/dL (75-110); LIPASE 1638.2 U/L (23-300); SODIUM 136.9 mmol/L (137-145); TOTAL PROTEIN 5.7 g/dL (6.3-8.2)
[2017-03-14] MEDS: HYDRALAZINE HCL 50 MG TABLET PO SCH ×3 (05:30→21:41)
[2017-03-14] MEDS ORDERED: NORMAL SALINE 1000 ML 1,000 ML IV PRN (07:54)
[2017-03-14] MEDS: LANSOPRAZOLE 30 MG TAB.RAP.DR PO SCH ×2 (09:34→17:10)
[2017-03-14] MEDS: CLONAZEPAM 1 MG TABLET PO SCH ×2 (09:35→17:10)
[2017-03-14] MEDS: METOPROLOL SUCCINATE 50 MG TAB.SR.24H PO SCH (09:36)
--- NOTE | 2017-03-14 15:54 | PROGRESS NOTE E ---
Progress Note NAME: RAMIREZ GODOY : 1955 AGE: 61Y DATE: 03/14/2017 ROOM: 404 SUBJECTIVE: The patient is currently lying in bed. She states that she has had some intermittent abdominal pain but overall feels that it is improving. She is able to tolerate her food. She denies any nausea, vomiting, diarrhea. No shortness of breath, dizziness, chest pain. No fevers, chills. The patient has been afebrile. Blood pressures have been in a good range. The patient does not voice any other concerns at this time. REVIEW OF SYSTEMS: The rest of the review of systems is negative. MEDICATIONS: Medications have been reviewed. OBJECTIVE: GENERAL: The patient is a 61-year-old -[place] female who is awake, alert and oriented to person, place, time, and situation. She is verbal, conversational, ambulatory, does not appear to be in any acute distress. VITAL SIGNS: As follows: Temperature is 98.7, pulse 92, respirations 16, blood pressure is 159/98, oxygen saturation is 98% on room air. SKIN: Warm and dry. No rash. Not diaphoretic. HEENT: Pupils equal, round, reactive to light and accommodation. Conjunctiva is pink. NECK: There is no JVD. CARDIOVASCULAR SYSTEM: Heart is regular. There is no murmur or rub. CHEST: Clear, symmetrical, unlabored. ABDOMEN: Diffusely tender. There is no focal area of tenderness. BACK: No CVA tenderness, sacral edema. EXTREMITIES: No clubbing, cyanosis, edema. PSYCHIATRIC: Appropriate affect. Pleasant mood. DIAGNOSTICS: Lab values are as follows: Hematology obtained on 03/12/2017; WBCs are , hemoglobin is 9.4, hematocrit is 28, platelet count is 147,000. Chemistry obtained on 03/14/2017: Sodium is 136, potassium 4.0, chloride is 105, carbon dioxide 24, BUN 3, creatinine is 0.75, glucose 119, calcium is 8.5, magnesium is 1.6, bilirubin 0.5, AST 19, ALT is 26, alkaline phosphatase 65, total protein 5.7, albumin 2.9, lipase is 1638. IMPRESSION AND PLAN: 1. ACUTE ALCOHOLIC PANCREATITIS. The patient's lipase is slowly trending down. The patient's symptoms are much improved. Will continue fluids and repeat lipase in the a.m. 2. ALCOHOL DEPENDENCY. Continue scheduled Klonopin. There is no evidence of withdrawal. 3. HYPERTENSION. Blood pressures have been elevated, so this may be a pain response. Will continue hydralazine and follow. 4. TOBACCO DEPENDENCY, CONTINUOUS. Will continue p.r.n. nicotine patch. DISPOSITION: The patient is a FULL CODE. Pending patient's symptomatology and diagnostic findings, will re-evaluate in the a.m. for discharge. I have tried to contact the patient's son twice at two numbers that are provided. However, one of them has no answer, and the other one does not have a voicemail set up. Time spent on this followup including assessment, plan, physical examination, patient education is 15 minutes. DICTATING PHYSICIAN: MARIE TATUM NP [id number] PHY#: [id number] ID: [id number] JOB#: [id number] ACCT: [id number] cc:MARIE TATUM NP > MTDD
[2017-03-15] MEDS: HYDRALAZINE HCL 50 MG TABLET PO SCH (05:42)
[2017-03-15] MEDS: ACETAMINOPHEN 325 MG TABLET PO PRN (08:20)
[2017-03-15] MEDS: LANSOPRAZOLE 30 MG TAB.RAP.DR PO SCH (08:20)
--- NOTE | 2017-03-15 09:34 | DISCHARGE SUMMARY E ---
Discharge Summary NAME: RAMIREZ GODOY : 1955 AGE: 61Y ADMITTED: 03/11/2017 DISCHARGED: 03/15/2017 CODE STATUS: FULL CODE. PRIMARY CARE PROVIDER: In [place]. DISCHARGE DIAGNOSES: 1. ACUTE ALCOHOLIC PANCREATITIS. 2. ALCOHOL DEPENDENCY. 3. HYPERTENSION. 4. TOBACCO DEPENDENCY. DISCHARGE MEDICATIONS: 1. Klonopin 10 mg p.o. at bedtime. 2. Omeprazole 40 mg p.o. daily. 3. Flonase 1 spray nasally daily p.r.n. 4. Hydralazine 25 mg p.o. q.6 hours. 5. Hydroxyzine 25 mg p.o. q.8 hours p.r.n. 6. Meloxicam 15 mg p.o. daily p.r.n. 7. Metoprolol XL 100 mg p.o. daily. 8. Valsartan 320 mg p.o. daily. DIET: Non-fat. ACTIVITY: As tolerated. DIAGNOSTICS: Lab values are as follows: Hematology on 03/12/2017, WBC 3.2, hemoglobin 9.4, hematocrit 28.8, platelet count 147,000. Chemistries obtained 03/14/2017: Sodium 136, potassium 4.0, chloride 105, bicarbonate 24, BUN 3, creatinine 0.75, glucose 119, calcium 8.5, bilirubin 0.5, AST 19, ALT 26, alkaline phosphatase 65, total protein 5.7, albumin 2.9, lipase 1000. Urinalysis obtained on 03/10/2017: Color yellow, appearance clear, pH 5, specific gravity 1.039, protein negative, blood negative, a couple small nitrites, positive bilirubin, negative urobilinogen, trace leukocytes esterase, small WBC, 8 RBC, 1 bacteria, 1 mucous rare, sulfuric acid negative. CT of the abdomen and pelvis obtained on 03/10/2017 revealed diffuse enlargement of pancreas with peripancreatic fluid and fat stranding, questionable for underlying pancreatitis, small amount of fluid seen within the pelvis, likely related to inflammatory changes. No other acute abnormality noted of the pancreas. Abdominal ultrasound obtained on 03/10/2017 revealed intraabdominal ascites as seen on CT, no significant abnormality is identified. EKG obtained on 03/10/2017 revealed sinus rhythm. PHYSICAL EXAMINATION: GENERAL: The patient is a 61-year-old female, who is awake, alert, and oriented to person, place, time, and situation. She is verbal, conversational, ambulatory, does not appear to be in any acute distress. VITAL SIGNS: As follows: Temperature is 98.4, pulse 71, respirations 18, blood pressure is 158/88, oxygen saturation is 98% on room air. SKIN: Warm and dry. No rash. She is not diaphoretic. HEENT: Pupils are equal, round, reactive to light and accommodation. Conjunctivae pink. No JVP. CARDIOVASCULAR: Heart is regular with no murmur or rub. CHEST: Clear, symmetrical, unlabored. ABDOMEN: Soft, nontender, nondistended. BACK: No CVA tenderness or sacral edema. EXTREMITIES: No clubbing, cyanosis, edema. PSYCHIATRIC: Appropriate affect. Pleasant mood. HISTORY OF PRESENT ILLNESS: The patient is a 61-year-old, female, who is awake, alert and oriented. The patient presented to the emergency department the chief complaint of abdominal pain, as well as nausea. The patient has a history of hypertension, tobacco dependency, anxiety and alcohol dependence. The patient had been in his usual state of health until approximately 48 hours prior to presentation, when she developed abdominal pain associated with nausea and loose stools without vomiting. The patient admits to alcohol indiscretion over the past several days while visiting with family, as well as eating a lot of fatty foods. The patient denied any recent changes in medication. The patient has not been on any diuretic therapy. While in the emergency department, the patient was found to have a lipase of 3075, CT positive for pancreatic inflammation without necrosis or abscess and the patient was referred to the hospitalist for admission and management. HOSPITAL COURSE: The patient was admitted to continuous telemetry unit. The patient was aggressive hydrated and the patient's chemistries remained stable. Electrolytes were replaced as needed. The patient's initial lipase was 3075. This did improve significantly to 1068, did wax and wane during her stay. However, it is to be noted that once the patient was advanced to a clear liquid, non-fat diet, there was evidence of fast-food containers in the room and the patient may have ate outside food. However, the patient's symptoms improved throughout her stay and on the day of discharge, the patient is completely asymptomatic. Therefore, it is agree able for discharge with the patient to follow up in the next 3-5 days for repeat labs to the return to the emergency department sooner if symptoms recur. The patient has agreed to abstain from alcohol, as well as fatty foods and is ready for discharge. DISCHARGE PLAN: The patient is advised to follow with her primary care provider upon her return home. Should the patient not return home within the week, it is advised that she followup in the next 3-5 days with Urgent Care. I do want the patient to have routine chemistries including lipase to ensure continue improvement of her symptoms. TIME SPENT: On this discharge including assessment, plan, physical examination and patient education is 25 minutes. DICTATING PHYSICIAN: MARIE TATUM NP [id number] PHY#: [id number] ID: [id number] JOB#: [id number] ACCT: [id number] cc:SHANNAN WALTON M.D. MARIE TATUM NP >
[2017-03-15] MEDS: CLONAZEPAM 1 MG TABLET PO SCH (09:37)
[2017-03-15] MEDS: METOPROLOL SUCCINATE 50 MG TAB.SR.24H PO SCH (09:37)
[2017-03-15 11:22] VITALS: BP 160/75
== END 2017-03-15 11:45 | disposition home or self-care (01) | DRG 440 ==
LOC: ER 17:05 → EH 22:47 → UNDOADMOB 22:55 → INTOOBSV 22:55 → 4N 03-11 00:43 → OBSVTOIN 03-11 08:50 → 4N 03-11 14:30
PROVIDERS: ADMIT Internal Medicine; ATTEND Internal Medicine
DX: K85.20 Alcohol induced acute pancreatitis without necrosis or infection (principal); I10 Essential (primary) hypertension; F10.20 Alcohol dependence, uncomplicated; J44.9 Chronic obstructive pulmonary disease, unspecified; F41.1 Generalized anxiety disorder; F17.210 Nicotine dependence, cigarettes, uncomplicated; Z90.710 Acquired absence of both cervix and uterus; Z82.49 Family history of ischemic heart disease and other diseases of the circulatory system; Z83.3 Family history of diabetes mellitus; Z79.899 Other long term (current) drug therapy; Z88.8 Allergy status to other drugs, medicaments and biological substances
CPT/HCPCS: 36415; 74177; 76705; 80048; 80053; 81001; 82962; 83690; 83735; 84478; 84484; 85025; 85027; 93005; 93010; 96361; 96374; 96375; 96376; 99285; G0378; J1644; J1885; J2060; J2270; J2405; J3411; J3480; J3490; J7030; S0119

== ENCOUNTER 2017-03-18 11:31 | Emergency (ER) | payer OTHER ==
[2017-03-18 11:35] VITALS: BP 164/93
--- NOTE | 2017-03-18 11:41 | ER Document Report ---
ED Medical Screen (RME) - General Chief Complaint: High Blood Pressure Stated Complaint: VITALS CHECKED Time Seen by Provider: 03/18/17 11:40 Information source: Patient Notes: 51-year-old female that presents today with 1 week of progressive shortness of breath. She also states a cough with some scattered green phlegm. She denies any fevers, vomiting, or diarrhea. She does state some positive nausea. She denies any calf pain, leg swelling, or chest pain. Patient does endorse some orthopnea. She denies a history of heart failure. Patient lives in [facility] and will be returning on after 1 month stay. Been having no night sweats or hemoptysis according to the patient. TRAVEL OUTSIDE OF THE [place] IN LAST 30 DAYS: No - Related Data Allergies/Adverse Reactions: amlodipine [From Lotrel] Allergy (Verified 03/18/17 11:33) benazepril [From Lotrel] Allergy (Verified 03/18/17 11:33) Past Medical History - Past Medical History Cardiac Medical History: Reports: Hx Hypertension Pulmonary Medical History: Reports: Hx COPD Renal/ Medical History: Denies: Hx Peritoneal Dialysis Past Surgical History: Reports: Hx Abdominal Surgery - x2, Hx Hysterectomy Physical Exam - Vital signs Vitals: Temp Pulse Resp BP Pulse Ox 98.7 F 75 15 164/93 H 99 03/18/17 11:33 03/18/17 11:33 03/18/17 11:33 03/18/17 11:33 03/18/17 11:33 Course - Vital Signs Vital signs: Temp Pulse Resp BP Pulse Ox 98.7 F 75 15 164/93 H 99 03/18/17 11:33 03/18/17 11:33 03/18/17 11:33 03/18/17 11:33 03/18/17 11:33
[2017-03-18] MEDS ORDERED: ACETAMINOPHEN 325 MG TABLET PO ONE (11:42)
--- NOTE | 2017-03-18 12:15 | ER Document Report ---
ED General - General Chief Complaint: High Blood Pressure Stated Complaint: VITALS CHECKED Time Seen by Provider: 03/18/17 11:40 Information source: Patient Notes: Patient is a 61-year-old female that was recently discharged on 3 days ago from this hospital secondary to pancreatitis. Patient was noted to have an elevated blood pressure of 220/120 on admission. Patient's pain was treated appropriately and the patient was discharged home and was told to follow-up in 3 days. Patient is visiting from [place] she does not have a primary care physician. She states she has been taking her medications appropriately. She states her abdomen pain is much improved. She denies any nausea, vomiting, or fevers. Patient has been taking her blood pressure medications. She denies any headache, chest pain, calf pain, or leg swelling. TRAVEL OUTSIDE OF THE [place] IN LAST 30 DAYS: No - HPI Onset: Other - See above Onset/Duration: Gradual Quality of pain: Achy Severity: None Pain Level: Denies Associated symptoms: Other - See above Exacerbated by: Denies Relieved by: Denies Similar symptoms previously: Yes Recently seen / treated by doctor: Yes - Related Data Allergies/Adverse Reactions: amlodipine [From Lotrel] Allergy (Verified 03/18/17 11:33) benazepril [From Lotrel] Allergy (Verified 03/18/17 11:33) Past Medical History - General Information source: Patient - Social History Smoking Status: Unknown if Ever Smoked Cigarette use (# per day): No Chew tobacco use (# tins/day): No Smoking Education Provided: No Frequency of alcohol use: None Drug Abuse: None Family History: DM, Hypertension Patient has suicidal ideation: No Patient has homicidal ideation: No - Past Medical History Cardiac Medical History: Reports: Hx Hypertension Pulmonary Medical History: Reports: Hx COPD Renal/ Medical History: Denies: Hx Peritoneal Dialysis Past Surgical History: Reports: Hx Abdominal Surgery - x2, Hx Hysterectomy Physical Exam - Vital signs Vitals: Temp Pulse Resp BP Pulse Ox 98.7 F 75 15 164/93 H 99 03/18/17 11:33 03/18/17 11:33 03/18/17 11:33 03/18/17 11:33 03/18/17 11:33 Notes: Reviewed vital signs and nursing note as charted by RN. CONSTITUTIONAL: Alert and oriented and responds appropriately to questions. Well -appearing; well-nourished CARD: Regular rate and rhythm; no murmurs RESP: Normal chest excursion without splinting or tachypnea; breath sounds clear and equal bilaterally ABD/GI: Normal bowel sounds; non-distended; soft, non-tender to deep palpation of all 4 quadrants of the abdomen EXT: No edema SKIN: Normal color for age and race; warm; dry; good turgor; capillary refill < 2 seconds; no acute lesions noted NEURO: CN 2-12 intact. Moves all extremities equally; Motor and sensory function intact Course - Re-evaluation Re-evalutation: 03/18/17 12:13 Given the history and physical examination, without chest pain, shortness of breath, leg swelling, with a blood pressure as recorded, currently on blood pressure medications, with no return of abdominal pain, with the primary care physician in [place], I do not believe that the patient requires any laboratory work or intervention at this time. Patient will be discharged home with strict return precautions and follow-up with the primary care physician in [place]. - Vital Signs Vital signs: Temp Pulse Resp BP Pulse Ox 98.7 F 75 15 164/93 H 99 03/18/17 11:33 03/18/17 11:33 03/18/17 11:33 03/18/17 11:33 03/18/17 11:33 Discharge - Discharge Clinical Impression: Regular check-up, BP check Condition: Good Disposition: HOME, SELF-CARE Additional Instructions: Come back immediately with any return of abdominal pain, any chest pain, headache, leg swelling, fevers, or any other acute problems. Please follow-up with your doctor in [place] for reevaluation of your blood pressure as we have discussed
== END 2017-03-18 12:21 | disposition home or self-care (01) ==
LOC: ER 11:31
DX: I10 Essential (primary) hypertension (principal); J44.9 Chronic obstructive pulmonary disease, unspecified; Z88.8 Allergy status to other drugs, medicaments and biological substances
CPT/HCPCS: 99282